=== PATIENT | female | born 1980 | race Hispanic/Latino ===

== ENCOUNTER 2017-05-20 17:17 | Emergency (ER) | payer OTHER | END 2017-05-20 17:57 | disposition home or self-care (01) | LOC: EDH 17:17 | DX: S16.1XXA Strain of muscle, fascia and tendon at neck level, initial encounter (principal); M54.5 Low back pain; Z88.0 Allergy status to penicillin; Z98.51 Tubal ligation status; V49.59XA Passenger injured in collision with other motor vehicles in traffic accident, initial encounter; Y93.89 Activity, other specified; Y92.89 Other specified places as the place of occurrence of the external cause; Y99.8 Other external cause status | CPT/HCPCS: 99281 ==

== ENCOUNTER 2018-10-02 22:37 | Emergency (ER) | payer MEDICAID, OTHER ==
[2018-10-02 23:23] LABS: APPEARANCE,URINE Cloudy (CLEAR); BILIRUBIN,URINE Negative (NEGATIVE); COLOR,URINE Dark Yellow (YELLOW); GLUCOSE, URINE (UA) Negative (NEGATIVE); KETONES,URINE Trace mg/dL (NEGATIVE); LEUKOCYTE ESTERASE ,URINE Small (NEGATIVE); NITRATE,URINE Negative (NEGATIVE); OCCULT BLOOD,URINE Negative (NEGATIVE); PH,URINE 5.5 (5.0-8.0); PROTEIN,URINE POS 1+ mg/dL (NEGATIVE)
[2018-10-02 23:25] LABS: HCG,QUAL RESULT NEGATIVE (NEGATIVE)
[2018-10-02] MEDS ORDERED: KETOROLAC TROMETHAMINE 60 MG/2 ML VIAL ONE (23:40)
[2018-10-02] MEDS ORDERED: ORPHENADRINE CITRATE 30 MG/ML ML ONE (23:40)
[2018-10-02 23:46] LABS: BACTERIA,URINE Few /HPF (None Seen); MUCUS,URINE Moderate LPF (None Seen); RBC,URINE None Seen /HPF (0-1); SQUAMOUS EPITHELIAL CELL,UR Moderate /HPF (0-2)
== END 2018-10-03 00:26 | disposition home or self-care (01) ==
LOC: EDH 22:37
DX: G89.29 Other chronic pain (principal); M54.5 Low back pain; N39.0 Urinary tract infection, site not specified; Z88.0 Allergy status to penicillin; Z72.0 Tobacco use
CPT/HCPCS: 81001; 81025; 96372 ×2; 99284; J1885; J2360